=== PATIENT | male | born 1990 | race American Indian/Alaskan Native ===

== ENCOUNTER 2017-11-20 16:32 | Emergency (ER) | payer OTHER ==
[2017-11-20 16:37] VITALS: BP 153/95
--- NOTE | 2017-11-20 19:38 | Emergency Department Report ---
[facility] Chief Complaint: Eye Problems Stated Complaint: LEFT EYE REDNESS/MUCUS Time Seen by Provider: 11/20/17 18:54 Duration: 2 Days Side: Left, Right Severity: mild Symptoms: Yes Eye Itching, Yes Eye Redness, Yes Mucous Drainage, No Eye Pain, No Purulent Drainage, No Blurred Vision, No Preceding URI, No H/O Allergic Rhinitis, No Contact Lens Use, No Trauma, No Fever, No Headache Other History: 27-year-old male past medical history none presents with complaint of left eye irritation with some mucoid discharge for 2 days. Denies wearing contact lenses denies any direct trauma to eye. States he may have been handling dirty material at home within the last 48-72 hours and touched his eye with dirty hand but denies any direct eye trauma or foreign body sensation. No blurred vision reported by patient. Awake alert and oriented 3 not in acute distress ED Review of Systems ROS: Stated complaint: LEFT EYE REDNESS/MUCUS Other details as noted in HPI Constitutional: denies: chills, fever Eyes: as per HPI. denies: eye pain, eye discharge, vision change ENT: as per HPI. denies: ear pain, throat pain Respiratory: denies: cough, shortness of breath, wheezing Cardiovascular: denies: chest pain, palpitations Endocrine: no symptoms reported Gastrointestinal: denies: abdominal pain, nausea, diarrhea Genitourinary: denies: urgency, dysuria Musculoskeletal: denies: back pain, joint swelling, arthralgia Skin: denies: rash, lesions Neurological: denies: headache, weakness, paresthesias Psychiatric: denies: anxiety, depression Hematological/Lymphatic: denies: easy bleeding, easy bruising ED Past Medical Hx - Past Medical History Previous Medical History?: No - Surgical History Past Surgical History?: No - Social History Smoking Status: Current Every Day Smoker Substance Use Type: None - Medications Home Medications: Home Medications Medication Instructions Recorded Confirmed Last Taken Type Naphazoline HCl/Pheniramine 5 - 10 ml OP Q4H PRN #1 bottle 11/20/17 Unknown Rx [Naphcon-A Eye Drops] Tobramycin 0.3% [Tobrex] 1 drop OS Q4H #1 bottle 11/20/17 Unknown Rx [facility] Exam - Exam General: Vital signs noted. No distress. Alert and acting appropriately. Eye Exam: Left Injection, Left Chemosis, Left Mucous Discharge, Neither Abnormal Pupil, Neither EOMI, Neither Eye Foreign Body, Neither Lid Foreign Body , Neither Purulent Discharge, Neither Fluorescein Uptake, Neither Fluorescein Uptake (slit lamp), Neither Cell/Flare (slit lamp), Neither Corneal Edema, Neither Photophobia HEENT: No Nasal Congestion, No Pharyngeal Erythema Remainder of HEENT: Normal Lungs: Yes Clear Lung Sounds, Yes Good Air Exchange, No Wheezes, No Stridor, No Cough, No Nasal Flaring, No Retractions, No Use of Accessory Muscles ED Course Vital Signs 11/20/17 16:36 Temperature 98.8 F Pulse Rate 86 Respiratory 18 Rate Blood Pressure 153/95 O2 Sat by Pulse 97 Oximetry ED Medical Decision Making - Medical Decision Making A/P: Left-sided conjunctivitis 1-tobramycin drops, Naphcon A drops 2-vision 20/20 bilaterally 3-follow up with primary care, I gave patient information for ophthalmology if symptoms persist Critical care attestation.: If time is entered above; I have spent that time in minutes in the direct care of this critically ill patient, excluding procedure time. ED Disposition Clinical Impression: Conjunctivitis Qualifiers: Conjunctivitis type: acute Acute conjunctivitis type: unspecified Laterality: left Qualified Code(s): H10.32 - Unspecified acute conjunctivitis, left eye Disposition: DC- TO HOME OR SELFCARE Is pt being admited?: No Does the pt Need Aspirin: No Condition: Stable Instructions: Conjunctivitis (ED) Prescriptions: Naphazoline HCl/Pheniramine [Naphcon-A Eye Drops] 5 - 10 ml OP Q4H PRN #1 bottle PRN Reason: Dry Eye(S) Tobramycin 0.3% [Tobrex] 1 drop OS Q4H #1 bottle Referrals: GIA REYNOSO MD [Staff Physician] - 3-5 Days Forms: Work/School Release Form(ED) Time of Disposition: 19:37
== END 2017-11-20 19:44 | disposition home or self-care (01) ==
LOC: ED 16:32
DX: H10.32 Unspecified acute conjunctivitis, left eye (principal); F17.200 Nicotine dependence, unspecified, uncomplicated
CPT/HCPCS: 99283